=== PATIENT | female | born 1990 | race Caucasian/White ===

== ENCOUNTER → 2019-12-04 | Outpatient (CLI) | payer MEDICAID ==
--- NOTE | 2019-12-04 17:41 | Diagnostic Imaging Report ---
INDICATION: 29-year-old female injured in fall, down approximately three steps, presents with tailbone pain. COMPARISONS: None. FINDINGS: Two views of the sacrum and coccyx show no evidence of new or healing fractures, bony destruction, or remodeling. Both femoral heads appear well seated within their respective acetabula. IMPRESSION: No fracture or subluxation seen. Dictated by: Dictated on workstation # [id number]
== END ==
LOC: RAD FS 16:54
PROVIDERS: ATTEND Nurse Practitioner Family
DX: M79.18 Myalgia, other site (principal); W10.8XXA Fall (on) (from) other stairs and steps, initial encounter
CPT/HCPCS: 72220

== ENCOUNTER 2020-10-03 12:22 | Emergency (ER) | payer MEDICAID ==
[2020-10-03 13:06] LABS: BACTERIA,URINE MODERATE /HPF; BILIRUBIN,URINE NEGATIVE (NEGATIVE); CLARITY,URINE CLOUDY; COLOR,URINE DARK YELLOW; GLUCOSE, URINE (UA) NEGATIVE (NEGATIVE); KETONES,URINE NEGATIVE (NEGATIVE); LEUKOCYTE ESTERASE ,URINE NEGATIVE (NEGATIVE); NITRITE,URINE NEGATIVE (NEGATIVE); PROTEIN,URINE NEGATIVE (NEGATIVE); RBC,URINE 0-2 /HPF; SQUAMOUS EPITHELIAL CELL,UR 25-50 /HPF; WBC,URINE 0-2 /HPF
[2020-10-03] MEDS ORDERED: ONDANSETRON 4 MG/2 ML (SDV) Z0FRAN IVP STA (13:14)
[2020-10-03] MEDS ORDERED: PANTOPRAZOLE 40 MG (PROTONIX) VIAL IV STA (13:14)
[2020-10-03] MEDS ORDERED: NS IV 1000 ML 1,000 ML IV SCH (13:15)
[2020-10-03 13:54] LABS: ALANINE AMINOTRANSFERASE 12 U/L (0-55); ALBUMIN 4.2 GM/DL (3.2-4.5); ALKALINE PHOSPHATASE 61 U/L (40-136); BILIRUBIN,TOTAL 0.3 MG/DL (0.1-1.0); BUN/CREATININE RATIO 11; CALCIUM 9.4 MG/DL (8.5-10.1); CARBON DIOXIDE 25 MMOL/L (21-32); CHLORIDE 106 MMOL/L (98-107); CREATININE SERUM 0.75 MG/DL (0.60-1.30); GFR ESTIMATED > 60; GLUCOSE 95 MG/DL (70-105); POTASSIUM 3.8 MMOL/L (3.6-5.0); SODIUM 141 MMOL/L (135-145); TOTAL PROTEIN 7.2 GM/DL (6.4-8.2)
[2020-10-03 13:55] LABS: BASOPHILS % (AUTO) 1 % (0-10); EOSINOPHILS % (AUTO) 4 % (0-10); HEMATOCRIT 41 % (35-52); LIPASE 25 U/L (8-78); LYMPHOCYTES % (AUTO) 39 % (12-44); MEAN CORPUSCULAR HEMOGLOBIN 25 PG (25-34); MEAN CORPUSCULAR HGB CONC 32 G/DL (32-36); MEAN CORPUSCULAR VOLUME 78 FL (80-99); MEAN PLATELET VOLUME 10.7 FL (7.4-10.4); MONOCYTES % (AUTO) 6 % (0-12); PLATELET COUNT 253 10^3/uL (130-400); WHITE BLOOD COUNT 6.2 10^3/uL (4.3-11.0)
[2020-10-03 13:56] LABS: BASOPHILS # (AUTO) 0.1 10^3/uL (0.0-0.1); EOSINOPHILS # (AUTO) 0.2 10^3/uL (0.0-0.3); LYMPHOCYTES # (AUTO) 2.4 X 10^3 (1.0-4.0); MONOCYTES # (AUTO) 0.4 X 10^3 (0.0-1.0); NEUTROPHILS # (AUTO) 3.1 X 10^3 (1.8-7.8); NEUTROPHILS % (AUTO) 50 % (42-75)
--- NOTE | 2020-10-03 14:05 | ED GI ---
General Chief Complaint: Abdominal/GI Problems Stated Complaint: ABD PAIN Nursing Triage Note: Started having upper abdominal pain and burning for the past two days. Has been constant. Rated at 6/10. Has taken antacids and pepto for symptoms with no relief. Has had difficulty sleeping due to discomfort. Unrelated to food intake. No previous abdominal surgeries. Denies urinary symptoms, diarrhea, or fever. LMP 3 weeks ago. Denies possibility of . Sepsis Screen: No Definite Risk Source of Information: Patient History of Present Illness Date Seen by Provider: Oct 03, 2020 Time Seen by Provider: 14:05 Initial Comments 30-year-old female presenting with complaints of upper abdominal pain for the last 2 days. She states it has a burning sensation. She has tried Pepto-Bismol as well as Tums with no relief. She was having difficulty sleeping last night and was unable to go to work. She has not noticed any relation to food making the pain worse. Position does not make the pain any better or worse either. She has had no change in her bowels. She has no burning with urination, diarrhea or constipation, fever or chills. Her last menstrual period was 3 weeks ago. She denies any history of abdominal surgeries. Allergies and Home Medications Allergies Coded Allergies: sulfamethoxazole (Verified Allergy, Unknown, pain, nausea, vomiting , 10/03/20) trimethoprim (Verified Allergy, Unknown, pain, nausea, vomiting , 10/03/20) Patient Home Medication List Home Medication List Reviewed: Yes Review of Systems Review of Systems Constitutional: No chills, No fever EENTM: No Symptoms Reported Respiratory: No Symptoms Reported Cardiovascular: No Symptoms Reported Gastrointestinal: Abdominal Pain (upper abdomen and epigastric area); Denies Diarrhea; Nausea; Denies Vomiting Genitourinary: No Symptoms Reported Musculoskeletal: no symptoms reported Skin: no symptoms reported Psychiatric/Neurological: No Symptoms Reported Endocrine: No Symptoms Reported Past Bhbqrhj-Haqscd-Pkfypx Hx Past Med/Social Hx: Reviewed Nursing Past Med/Soc Hx Patient Social History Alcohol Use: Denies Use Recreational Drug Use: Yes 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 Smoking Status: Current Everyday Smoker 2nd Hand Smoke Exposure: Yes Recent Foreign Travel: No Contact w/Someone Who Travel: No Recent Infectious Disease Expo: No Recent Hopitalizations: No Seasonal Allergies Seasonal Allergies: No Past Medical History Surgeries: No Respiratory: No Cardiac: No Neurological: No Genitourinary: No Gastrointestinal: No Musculoskeletal: No Endocrine: No HEENT: No Cancer: No Psychosocial: No Integumentary: No Blood Disorders: No Physical Exam Vital Signs Vital Signs - First Documented 10/03/20 12:37 Temp 36.5 Pulse 76 Resp 15 B/P (MAP) 125/59 (81) Pulse Ox 100 Capillary Refill : Less Than 3 Seconds Height/Weight/BMI Height: '" Weight: lbs. oz. kg; BMI Method: General Appearance: WD/WN, no apparent distress Respiratory: chest non-tender, lungs clear, normal breath sounds, no respiratory distress, no accessory muscle use Cardiovascular: normal peripheral pulses, regular rate, rhythm Gastrointestinal: normal bowel sounds, soft, no pulsatile mass; No guarding, No rebound; tenderness (epigastric and upper abdomen); No hernia, No mass Rectal: deferred Extremities: normal range of motion, non-tender, normal capillary refill Back: normal inspection, no CVA tenderness, no vertebral tenderness Neurologic/Psychiatric: alert, oriented x 3 Skin: normal color, warm/dry; No rash Progress/Results/Core Measures Results/Orders Lab Results Laboratory Tests Test 10/03/20 12:28 10/03/20 13:25 Range/Units Urine Color DARK YELLOW Urine Clarity CLOUDY H Urine pH 6.0 5-9 Urine Specific [place] 1.025 H 1.016-1.022 Urine Protein NEGATIVE NEGATIVE Urine Glucose (UA) NEGATIVE NEGATIVE Urine Ketones NEGATIVE NEGATIVE Urine Nitrite NEGATIVE NEGATIVE Urine Bilirubin NEGATIVE NEGATIVE Urine Urobilinogen 0.2 < = 1.0 MG/DL Urine Leukocyte Esterase NEGATIVE NEGATIVE Urine RBC (Auto) NEGATIVE NEGATIVE Urine RBC 0-2 /HPF Urine WBC 0-2 /HPF Urine Squamous Epithelial Cells 25-50 H /HPF Urine Crystals NONE /LPF Urine Bacteria MODERATE H /HPF Urine Casts NONE /LPF Urine Mucus LARGE H /LPF Urine Culture Indicated NO White Blood Count 6.2 4.3-11.0 10^3/uL Red Blood Count 5.25 4.35-5.85 10^6/uL Hemoglobin 13.0 11.5-16.0 G/DL Hematocrit 41 35-52 % Mean Corpuscular Volume 78 L 80-99 FL Mean Corpuscular Hemoglobin 25 25-34 PG Mean Corpuscular Hemoglobin Concent 32 32-36 G/DL Red Cell Distribution Width 16.1 H 10.0-14.5 % Platelet Count 253 130-400 10^3/uL Mean Platelet Volume 10.7 H 7.4-10.4 FL Immature Granulocyte % (Auto) 0 % Neutrophils (%) (Auto) 50 42-75 % Lymphocytes (%) (Auto) 39 12-44 % Monocytes (%) (Auto) 6 0-12 % Eosinophils (%) (Auto) 4 0-10 % Basophils (%) (Auto) 1 0-10 % Neutrophils # (Auto) 3.1 1.8-7.8 X 10^3 Lymphocytes # (Auto) 2.4 1.0-4.0 X 10^3 Monocytes # (Auto) 0.4 0.0-1.0 X 10^3 Eosinophils # (Auto) 0.2 0.0-0.3 10^3/uL Basophils # (Auto) 0.1 0.0-0.1 10^3/uL Immature Granulocyte # (Auto) 0.0 0.0-0.1 10^3/uL Sodium Level 141 135-145 MMOL/L Potassium Level 3.8 3.6-5.0 MMOL/L Chloride Level 106 98-107 MMOL/L Carbon Dioxide Level 25 21-32 MMOL/L Anion Gap 10 5-14 MMOL/L Blood Urea Nitrogen 8 7-18 MG/DL Creatinine 0.75 0.60-1.30 MG/DL Estimat Glomerular Filtration Rate > 60 BUN/Creatinine Ratio 11 Glucose Level 95 70-105 MG/DL Calcium Level 9.4 8.5-10.1 MG/DL Corrected Calcium 9.2 8.5-10.1 MG/DL Total Bilirubin 0.3 0.1-1.0 MG/DL Aspartate Amino Transf (AST/SGOT) 14 5-34 U/L Alanine Aminotransferase (ALT/SGPT) 12 0-55 U/L Alkaline Phosphatase 61 40-136 U/L Total Protein 7.2 6.4-8.2 GM/DL Albumin 4.2 3.2-4.5 GM/DL Lipase 25 8-78 U/L My Orders Orders - JOVANNY GARIBAY MD Ua Culture If Indicated (10/03/20 12:28) Urine Bedside (10/03/20 12:28) Comprehensive Metabolic Panel (10/03/20 13:13) Lipase (10/03/20 13:13) Ed Iv/Invasive Line Start (10/03/20 13:13) Cbc With Automated Diff (10/03/20 13:13) Ns Iv 1000 Ml (Sodium Chloride 0.9%) (10/03/20 13:15) Ondansetron Injection (Zofran Injectio (10/03/20 13:14) Pantoprazole Injection (Protonix Injecti (10/03/20 13:14) Ketorolac Injection (Toradol Injection) (10/03/20 14:23) Ct Abdomen/Pelvis W (10/03/20 14:23) Iohexol Injection (Omnipaque 350 Mg/Ml 1 (10/03/20 15:00) Received Contrast (Hold Metformin- Contr (10/03/20 15:00) Ns (Ivpb) (Sodium Chloride 0.9% Ivpb Bag (10/03/20 15:00) Medications Given in ED Current Medications Medications Dose Ordered Sig/Keith Route Start Time Stop Time Status Last Admin Dose Admin Iohexol 100 ml ONCE ONCE IV 10/03/20 15:00 10/03/20 15:01 DC 10/03/20 14:48 100 ML Sodium Chloride 100 ml ONCE ONCE IV 10/03/20 15:00 10/03/20 15:01 DC 10/03/20 14:48 80 ML Vital Signs/I&O 10/03/20 10/03/20 12:37 16:34 Temp 36.5 Pulse 76 58 Resp 15 16 B/P (MAP) 125/59 (81) 96/78 Pulse Ox 100 100 Blood Pressure Mean: 81 Progress Progress Note #1: Progress Note check labs and urine on patient. UA and bedside urine test are negative. Progress Note #2: Progress Note basic labs or not showing any acute significant abnormality. She has a normal white count without elevation. Her chemistry and liver enzymes did not show any acute significant. Reviewed results with the patient and since she was still having pain in the upper abdomen despite fluids as well as Protonix and Zofran will try dose of Toradol and obtain a CT scan of the abdomen and pelvis. if this still does not show any acute significant abnormality then the patient may need to follow up as an outpatient for further testing such as a possible H. pylori test or EGD. Progress Note #3: Progress Note CT scan does not show any acute significant abnormality. She has no signs of f luid collection or colitis or diverticulitis. She states her pain is better after treatment in the ED. Will discharge to home and encouraged to use a proton pump inhibitor. Advised to follow-up blade and a low fat diet. Check back with clinic and try to get further testing done as an outpatient. Diagnostic Imaging Diagonstic Imaging: CT Plain Films/CT/US/NM/MRI: abdomen, pelvis Comments NAME: THADDEUS COFFEY [facility] REC#: [id number] PT STATUS: REG ER : 1990 PHYSICIAN: JOVANNY GARIBAY MD ADMIT DATE: 10/03/20/ER FS Draft Date of Exam:10/03/20 CT ABDOMEN/PELVIS W EXAMINATION: CT abdomen and pelvis with intravenous contrast. TECHNIQUE: Multiple contiguous axial images were obtained through the abdomen and pelvis after the uneventful administration of intravenous contrast. All CT scans use one or more of the following dose optimizing techniques: automated exposure control, MA and/or KvP adjustment based on patient size and exam type or iterative reconstruction. HISTORY: Epigastric pain. COMPARISON: None available. FINDINGS: Limited views of the lower thorax are unremarkable. The liver is normal without focal lesion. There is no biliary ductal dilation. Gallbladder is normal. Pancreas is normal. Spleen is normal. Adrenal glands are normal. The kidneys are normal. There is no hydronephrosis. Urinary bladder is normal. Uterus and ovaries are normal. Visualized bowel is normal in caliber without obstruction or inflammation. The appendix is normal. No free fluid or air. No abdominal or pelvic lymphadenopathy. Aorta is normal in caliber without aneurysm. There are no suspicious osseus lesions. IMPRESSION: No acute abnormality in the abdomen or pelvis. Dictated on workstation # [id number] Dict: 10/03/20 1505 Trans: 10/03/20 1514 [facility] [id number] Interpreted by: MC FITZGERALD MD Electronically signed by: Departure Impression Primary Impression: Abdominal burning sensation in right upper quadrant Additional Impressions: Abdominal burning sensation in left upper quadrant Epigastric abdominal pain Gastritis Qualified Codes: K29.70 - Gastritis, unspecified, without bleeding Disposition: 01 HOME, SELF-CARE Condition: Improved Departure-Patient Inst. Decision time for Depature: 16:16 Referrals: NO,LOCAL PHYSICIAN (PCP) Primary Care Physician NARAYAN ESPINOSA MD Patient Instructions: Severe Abdominal Pain, Adult (DC), Dyspepsia (DC), Ulcer and Gastritis Diet, Acid Reflux and GERD in Adults (DC) Add. Discharge Instructions: Try taking a proton pump inhibitor such as Prilosec (Omeprazole) or Prevacid (Lansoprazole) or Nexium (Esomeprazole) to help with stomach acid and burning pain in stomach. Follow a low fat bland diet. Check with clinic for continued concerns and you may need to have a scope to look for ulcers or test to check for Helicobacter Pylori infection that can cause ulcers and worse acid indigestion. All discharge instructions reviewed with patient and/or family. Voiced understanding. Work/School Note: Work Release Form Date Seen in the Emergency Department: Oct 03, 2020 Return to Work: Oct 04, 2020 Restrictions: No Restrictions JOVANNY GARIBAY MD Oct 03, 2020 14:05
[2020-10-03] MEDS ORDERED: KETOROLAC 30 MG/ML VIAL IVP STA (14:23)
[2020-10-03] MEDS ORDERED: NS 100 ML (IVPB) BAG IV ONE (15:00)
[2020-10-03] MEDS ORDERED: HOLD METFORMIN - RECEIVED CONTRAST 20 ML VIAL IV SCH (15:00)
[2020-10-03] MEDS ORDERED: IOHEXOL 350 MG/ML 100 ML (OMNIPAQUE 350) VIAL IV ONE (15:00)
--- NOTE | 2020-10-03 15:16 | Diagnostic Imaging Report ---
EXAMINATION: CT abdomen and pelvis with intravenous contrast. TECHNIQUE: Multiple contiguous axial images were obtained through the abdomen and pelvis after the uneventful administration of intravenous contrast. All CT scans use one or more of the following dose optimizing techniques: automated exposure control, MA and/or KvP adjustment based on patient size and exam type or iterative reconstruction. HISTORY: Epigastric pain. COMPARISON: None available. FINDINGS: Limited views of the lower thorax are unremarkable. The liver is normal without focal lesion. There is no biliary ductal dilation. Gallbladder is normal. Pancreas is normal. Spleen is normal. Adrenal glands are normal. The kidneys are normal. There is no hydronephrosis. Urinary bladder is normal. Uterus and ovaries are normal. Visualized bowel is normal in caliber without obstruction or inflammation. The appendix is normal. No free fluid or air. No abdominal or pelvic lymphadenopathy. Aorta is normal in caliber without aneurysm. There are no suspicious osseus lesions. IMPRESSION: No acute abnormality in the abdomen or pelvis. Dictated by: Dictated on workstation # [id number]
[2020-10-03 16:34] VITALS: BP 96/78
== END 2020-10-03 16:34 | disposition home or self-care (01) ==
LOC: EDUNIT# 12:22 → ER FS 12:24
DX: R20.8 Other disturbances of skin sensation (principal); R10.13 Epigastric pain; K29.70 Gastritis, unspecified, without bleeding; F17.200 Nicotine dependence, unspecified, uncomplicated; Z88.2 Allergy status to sulfonamides; Z88.1 Allergy status to other antibiotic agents
CPT/HCPCS: 36415; 74177; 80053; 81000; 83690; 84703; 85025

== ENCOUNTER 2020-11-14 13:12 | Emergency (ER) | payer MEDICAID ==
[~2020-11-14] VITALS: Ht 170 cm; Wt 88.3 kg
--- NOTE | 2020-11-14 13:41 | ED Lower Extremity ---
General Chief Complaint: Lower Extremity Stated Complaint: LT ANKLE INJ Nursing Triage Note: fell last night and landed on left ankle. [place] it pop. Has been unable to bear weight since then. has been taking ibuprofen for pain. Rating pain at 6/10. Nursing Sepsis Screen: No Definite Risk Source: patient History of Present Illness Date Seen by Provider: Nov 14, 2020 Time Seen by Provider: 13:41 Initial Comments 30-year-old female presenting with complaint of left ankle pain. She states that less than when she got home work she had a step break and her ankle and twisted. She heard a pop and has been having severe pain in the ankle since then. She has difficulty trying to bear weight on that leg and foot. She denies any prior injury or problems with the cough. She had tried taking ibuprofen with minimal improvement in her pain. she denies hitting her head or losing consciousness. She denies any other injuries. Allergies and Home Medications Allergies Coded Allergies: sulfamethoxazole (Verified Allergy, Unknown, pain, nausea, vomiting , 10/03/20) trimethoprim (Verified Allergy, Unknown, pain, nausea, vomiting , 10/03/20) Home Medications Ibuprofen 800 Mg Tablet, 800 MG PO Q8H PRN for PAIN Prescribed by: JOVANNY GARIBAY on 11/14/20 1439 Patient Home Medication List Home Medication List Reviewed: Yes Review of Systems Constitutional: no symptoms reported EENTM: no symptoms reported Respiratory: no symptoms reported Cardiovascular: no symptoms reported Genitourinary: no symptoms reported Musculoskeletal: see HPI Skin: No change in color Psychiatric/Neurological: Denies Numbness, Denies Paresthesia Past Schtoil-Qjvyum-Ndkpto Hx Past Med/Social Hx: Reviewed Nursing Past Med/Soc Hx Patient Social History Alcohol Use: Denies Use Recreational Drug Use: No (currently denies) Drug of Choice: hx meth Smoking Status: Current Everyday Smoker Type Used: Cigarettes 2nd Hand Smoke Exposure: Yes Recent Foreign Travel: No Contact w/Someone Who Travel: No Recent Infectious Disease Expo: No Recent Hopitalizations: No Seasonal Allergies Seasonal Allergies: No Past Medical History Surgeries: No Respiratory: No Cardiac: No Neurological: No Genitourinary: No Gastrointestinal: No Musculoskeletal: No Endocrine: No HEENT: No Cancer: No Psychosocial: No Integumentary: No Blood Disorders: No Physical Exam Vital Signs Vital Signs - First Documented 11/14/20 13:18 Temp 36.7 Pulse 79 Resp 16 B/P (MAP) 119/75 (90) Pulse Ox 100 Capillary Refill : Less Than 3 Seconds Height, Weight, BMI Height: '" Weight: lbs. oz. kg; 30.00 BMI Method: General Appearance: WD/WN, mild distress Cardiovascular: normal peripheral pulses Ankles: left ankle pain, left ankle soft tissue tenderness, left ankle swelling (mild soft tissue swelling to the ankle. Pain with movement) Neurologic/Tendon: normal sensation, normal motor functions Neurologic/Psychiatric: java flex developer II-XII nml as tested, alert, oriented x 3 Skin: normal color, warm/dry Progress/Results/Core Measures Results/Orders My Orders Orders - JOVANNY GARIBAY MD Ankle 3 View Left (11/14/20 13:25) Crutches (11/14/20 14:35) Ed Ortho/Other Supplies Order (11/14/20 14:35) Jesus Bandage (11/14/20 14:35) Ice: Apply To Affected Area (11/14/20 14:35) Vital Signs/I&O 11/14/20 11/14/20 13:18 15:04 Temp 36.7 Pulse 79 63 Resp 16 16 B/P (MAP) 119/75 (90) 112/69 Pulse Ox 100 100 Blood Pressure Mean: 90 Progress Progress Note : Progress Note x-rays were obtained of the left ankle and did not demonstrate any acute fracture or dislocation. Will apply Jesus bandage and air splint and then use crutches for weightbearing as tolerated. Ibuprofen 800 mg every 8 hours as needed for pain. Ice and elevation to help with pain and swelling. Follow-up through the clinic for continued concerns Diagnostic Imaging Diagonstic Imaging: Xray Plain Films/CT/US/NM/MRI: ankle Comments [facility] [place] NAME: THADDEUS COFFEY [facility] REC#: [id number] PT STATUS: REG ER : 1990 PHYSICIAN: JOVANNY GARIBAY MD ADMIT DATE: 11/14/20/ER FS Signed Date of Exam:11/14/20 ANKLE 3 VIEW LEFT EXAMINATION: Left ankle 3 views HISTORY: fall; ankle pain COMPARISON: None available. FINDINGS: No acute fracture, dislocation, or destructive osseous process. Joint spaces are normal. The ankle mortise is intact. Mild soft tissue swelling about the left ankle. IMPRESSION: Left ankle soft tissue swelling without acute osseous abnormality. Dictated by: Dictated on workstation # [id number] Dict: 11/14/20 1347 Trans: 11/14/20 1407 [id number] [id number] Interpreted by: AMY JEAN DO Electronically signed by: AMY JEAN DO 11/14/20 1407 Departure Impression Primary Impression: Left ankle sprain Qualified Codes: S93.402A - Sprain of unspecified ligament of left ankle, initial encounter Additional Impression: Acute left ankle pain Disposition: HOME, SELF-CARE Condition: Stable Departure-Patient Inst. Decision time for Depature: 14:41 Referrals: NO,LOCAL PHYSICIAN (PCP) Primary Care Physician NARAYAN ESPINOSA MD Patient Instructions: Ankle Sprain ED, How to Use Crutches, Using Cold for Pain Add. Discharge Instructions: Ice 20-30 minutes every few hours as needed for pain and swelling. Ibuprofen 800 mg every 8 hours as needed for pain and swelling. Use jesus bandage and air splint to give support to your ankle. Crutches for weight bearing as tolerated. If not improving or worsening over the next 5-10 days then check with clinic or Orthopedics for follow up. Rodolfo Leigh APRN, with Orthopedics could be reached to schedule an appointment by calling [phone] All discharge instructions reviewed with patient and/or family. Voiced understanding. Scripts Ibuprofen (Ibuprofen) 800 Mg Tablet 800 MG PO Q8H PRN for PAIN for 10 Days, #30 TAB 0 Refills Prov: JOVANNY GARIBAY MD 11/14/20 Work/School Note: Work Release Form Date Seen in the Emergency Department: Nov 14, 2020 Return to Work: Nov 15, 2020 Other Restrictions Listed Below: Weight bearing as tolerated with crutches and ankle splint x 10-14 days JOVANNY GARIBAY MD Nov 14, 2020 13:41
--- NOTE | 2020-11-14 13:53 | Diagnostic Imaging Report ---
EXAMINATION: Left ankle 3 views HISTORY: fall; ankle pain COMPARISON: None available. FINDINGS: No acute fracture, dislocation, or destructive osseous process. Joint spaces are normal. The ankle mortise is intact. Mild soft tissue swelling about the left ankle. IMPRESSION: Left ankle soft tissue swelling without acute osseous abnormality. Dictated by: Dictated on workstation # [id number]
[2020-11-14] MEDS ORDERED: IBUP-1780 PO (14:39)
[2020-11-14 15:04] VITALS: BP 112/69
== END 2020-11-14 15:05 | disposition home or self-care (01) ==
LOC: EDUNIT# 13:12 → ER FS 13:14
DX: S93.402A Sprain of unspecified ligament of left ankle, initial encounter (principal); F17.210 Nicotine dependence, cigarettes, uncomplicated; Z88.2 Allergy status to sulfonamides; Z88.1 Allergy status to other antibiotic agents; X50.1XXA Overexertion from prolonged static or awkward postures, initial encounter
CPT/HCPCS: 73610; 99283; L4350

== ENCOUNTER 2021-10-18 16:12 | Emergency (ER) | payer MEDICAID ==
[~2021-10-18] VITALS: Ht 170 cm; Wt 88.0 kg
[~2021-10-18 16:12] MED LIST: IBUP-1780 PO
--- OUTSIDE RECORDS SUMMARY | 2021-10-18 16:17 | XMS REPORT | Clinical Summary ---
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 Active Problems Not on file Social History Date Tobacco Use Types Packs/Day Years Used Never Assessed Sex Assigned at Date Recorded Not on file Last Filed Vital Signs Reading Time Taken Comments Vital Sign 143/62 01/25/2014 7:58 PM CDT Blood Pressure 61 01/25/2014 7:58 PM CDT Pulse 36.7 C (98 F) 01/25/2014 6:12 PM CDT Temperature 16 01/25/2014 7:58 PM CDT Respiratory Rate 100% 01/25/2014 7:58 PM CDT Oxygen Saturation - - Inhaled Oxygen Concentration 76.2 kg (168 lb) 01/25/2014 6:12 PM CDT Weight 170.2 cm (5' 7") 01/25/2014 6:12 PM CDT Height 26.31 01/25/2014 6:12 PM CDT Body Mass Index Plan of Treatment Health Maintenance Due Date Last Done Comments Varicella Vaccines (1 of 1991 2 - 2-dose childhood series) COVID-19 Vaccine (1) 1995 Hepatitis C Screening 2008 DTaP,Tdap,and Td Vaccines 2009 (1 - Tdap) MMR Vaccines-Adult 2009 Cervical Cancer Screening 2011 Influenza Vaccine (#1) 2021 Pneumo-Vaccine: 65+Yrs (1 2055 of 1 - PPSV23) HIB Vaccines Aged Out No longer eligible based on patient's age to complete this topic IPV Vaccines Aged Out No longer eligible based on patient's age to complete this topic Meningococcal Vaccine Aged Out No longer eligib le based on patient's age to complete this topic Pneumo-Vaccine: Peds (0-5 Aged Out No longer el igible based on patient's age to Yrs) & At-Risk Patients complete this topic (6-64 Yrs) Rotavirus Vaccines Aged Out No longer eligible based on patient's age to complete this topic Results Not on filefrom Last 3 Months Insurance Type Payer Benefit Subscriber ID Effective Phone Address Plan / Dates Group [facility] 19 [id number] 2001- [phone] [place] [place] Present [address] [place] [address]
--- NOTE | 2021-10-18 16:24 | ED General ---
General Stated Complaint: MIGRAINE History of Present Illness Date Seen by Provider: Oct 18, 2021 Time Seen by Provider: 16:24 Initial Comments 31-year-old female presents with a headache. Patient reports that she started having headache day or 2 ago. She has good bit of sinus pressure with it. She has some generalized malaise feels like it can take starts in her back heads up overhead and/or right frontal region. Patient denies any cough. No sore throat. She reports a low-grade fever. No other systemic complaints. Patient complains a lot fatigue along with generalized body aches. Allergies and Home Medications Allergies Coded Allergies: sulfamethoxazole (Verified Allergy, Unknown, pain, nausea, vomiting , 10/03/20) trimethoprim (Verified Allergy, Unknown, pain, nausea, vomiting , 10/03/20) Patient Home Medication List Home Medication List Reviewed: Yes Ibuprofen (Ibuprofen) 800 Mg Tablet, 800 MG PO Q8H PRN for PAIN Prescribed by: JOVANNY GARIBAY on 11/14/20 8196 Review of Systems Review of Systems Constitutional: see HPI; No chills; malaise EENTM: see HPI Respiratory: No cough, No short of breath Cardiovascular: No chest pain Gastrointestinal: No nausea, No vomiting Musculoskeletal: no symptoms reported Skin: no symptoms reported Psychiatric/Neurological: Headache Past [id number] Hx Seasonal Allergies Seasonal Allergies: No Past Medical History Surgeries: No Respiratory: No Cardiac: No Neurological: No Genitourinary: No Gastrointestinal: No Musculoskeletal: No Endocrine: No HEENT: No Cancer: No Psychosocial: No Integumentary: No Blood Disorders: No Physical Exam Vital Signs Vital Signs - First Documented 10/18/21 16:25 Temp 38.4 Pulse 115 Resp 18 B/P (MAP) 129/76 (93) Pulse Ox 97 O2 Delivery Room Air Capillary Refill : Height, Weight, BMI Height: '" Weight: lbs. oz. kg; 30.00 BMI Method: General Appearance: No Apparent Distress, WD/WN HEENT: Pharyngeal Erythema Neck: Normal Inspection, Non Tender, Supple Respiratory: Lungs Clear, Normal Breath Sounds Cardiovascular: Regular Rate, Rhythm, No Edema Gastrointestinal: Non Tender, Soft Extremity: Normal Capillary Refill, Normal Inspection, Normal Range of Motion Neurologic/Psychiatric: Alert, Oriented x3, No Motor/Sensory Deficits, Normal Mood/Affect, thumb sewer II-XII Norm as Tested Skin: Normal Color, Warm/Dry Progress/Results/Core Measures Suspected Sepsis SIRS Temperature: Pulse: Respiratory Rate: Blood Pressure / Mean: Results/Orders Lab Results Laboratory Tests Test 10/18/21 16:37 Range/Units Group A Streptococcus Screen NEGATIVE NEGATIVE My Orders Orders - KATHERINE CASTRO DO Covid 19 Inhouse Test (10/18/21 16:30) Rapid Strep A Screen (10/18/21 16:30) Ketorolac Injection (Toradol Injection) (10/18/21 16:32) Orphenadrine Inj (Ed Only) (Norflex Inje (10/18/21 16:32) Vital Signs/I&O 10/18/21 10/18/21 16:25 17:01 Temp 38.4 38.4 Pulse 115 115 Resp 18 18 B/P (MAP) 129/76 (93) 129/76 Pulse Ox 97 97 O2 Delivery Room Air Room Air Capillary Refill : Progress Note : Progress Note Patient symptoms are much more indicative of a viral syndrome possibly Covid than actual migraine. She did get some relief with the medication. I discussed with her however the since all her symptoms and physical exam seem much more consistent with a viral syndrome. I recommend plenty of rest, plenty of fluids, Tylenol or ibuprofen as needed for body aches and fever generalized malaise. Her Covid test is pending and we will call her with results. Patient stable and discharged home Departure Impression Primary Impression: Acute viral syndrome Disposition: 01 HOME, SELF-CARE Condition: Stable Departure-Patient Inst. Referrals: NO,LOCAL PHYSICIAN (PCP/Family) Primary Care Physician Patient Instructions: COVID-19 ED, Viral Syndrome (DC) Add. Discharge Instructions: Drink plenty of fluids, get plenty of rest. For fluids I recommend Gatorade, body armor or other electrolyte containing drinks. Tylenol ibuprofen as needed for body aches, fevers chills and headache. Follow-up with Dr. Herbert of your symptoms or not improving over the next few days or if they continue to worsen. Return to the ER with any shortness of breath, chest pain or any other concerns. KATHERINE CASTRO DO Oct 18, 2021 16:24
[2021-10-18] MEDS ORDERED: ORPHENADRINE 60 MG/2 ML (NORFLEX) AMP (ED ONLY) IM STA (16:32)
[2021-10-18] MEDS ORDERED: KETOROLAC 30 MG/ML VIAL IM STA (16:32)
[2021-10-18 17:01] VITALS: BP 129/76
== END 2021-10-18 17:12 | disposition home or self-care (01) ==
LOC: EDUNIT# 16:12 → ER FS 16:13
DX: B34.9 Viral infection, unspecified (principal); Z20.822 Contact with and (suspected) exposure to COVID-19
CPT/HCPCS: 87430; 87636; 99284

== ENCOUNTER → 2021-11-07 | Outpatient (CLI) | payer MEDICAID ==
[2021-11-07 10:16] LABS: HEMATOCRIT 35 % (35-52); HEMOGLOBIN 11.6 g/dL (11.5-16.0); MEAN CORPUSCULAR HEMOGLOBIN 27 pg (25-34); MEAN CORPUSCULAR HGB CONC 33 g/dL (32-36); MEAN CORPUSCULAR VOLUME 81 fL (80-99); PLATELET COUNT 320 10^3/uL (130-400); WHITE BLOOD COUNT 7.5 10^3/uL (4.3-11.0)
[2021-11-07 10:17] LABS: MEAN PLATELET VOLUME 10.5 fL (9.0-12.2)
== END ==
LOC: LAB FS 09:40
PROVIDERS: ATTEND Family Medicine
DX: Z34.92 Encounter for supervision of normal pregnancy, unspecified, second trimester (principal)
CPT/HCPCS: 36415; 85027; 86703; 86762; 86780; 86850; 86900; 86901; 87077; 87088; 87340

== ENCOUNTER → 2021-12-23 | Outpatient (CLI) | payer MEDICAID | LOC: LAB FS 10:48 | PROVIDERS: ATTEND Family Medicine | DX: Z34.92 Encounter for supervision of normal pregnancy, unspecified, second trimester (principal); Z3A.17 17 weeks gestation of pregnancy | CPT/HCPCS: 36415; 82105; 82677; 84702; 86336; 87210 ==

== ENCOUNTER → 2021-12-23 | Outpatient (CLI) | payer MEDICAID | LOC: LABNPT 14:54 | PROVIDERS: ATTEND Family Medicine | DX: Z53.9 Procedure and treatment not carried out, unspecified reason (principal) ==

== ENCOUNTER → 2022-01-16 | Outpatient (CLI) | payer MEDICAID | LOC: LABNPT 14:51 | PROVIDERS: ATTEND Family Medicine | DX: Z34.92 Encounter for supervision of normal pregnancy, unspecified, second trimester (principal); Z11.3 Encounter for screening for infections with a predominantly sexual mode of transmission; Z3A.20 20 weeks gestation of pregnancy | CPT/HCPCS: 87591 ==

== ENCOUNTER → 2023-02-27 | Outpatient (CLI) | payer MEDICAID | LOC: LABNPT 14:52 | PROVIDERS: ATTEND Registered Nurse Emergency | DX: N89.8 Other specified noninflammatory disorders of vagina (principal); R30.0 Dysuria | CPT/HCPCS: 87088; 87210; 87491 ==